=== PATIENT | male | born 1950 | race Caucasian/White ===

== ENCOUNTER 2018-02-03 23:14 | Emergency (ER) | payer BC ==
[2018-02-03] MEDS ORDERED: DILTIAZEM 25 MG/5 ML VIAL IVP ONE (23:45)
[2018-02-03] MEDS ORDERED: NS 1,000 ML IV ONE (23:54)
[2018-02-04] MEDS ORDERED: DILTIAZEM 25 MG/5 ML VIAL IVP ONE (00:16)
--- NOTE | 2018-02-04 00:16 | EDPHY ---
H & P Stated Complaint: ALISSA, flew from [facility], "claustrophobic", diaphoretic Time Seen by Provider: 02/03/18 23:35 HPI/ROS: HPI The patient presents with feeling of anxiety and shortness of breath which began at about 930 while going to bed. The patient is visiting from [place] and flew here on an airplane this morning. He had a mild headache which resolved after drinking water. During the day today he did go on some long walks and believes may have over exerted himself. While lying in bed at 9:30 a.m. He developed diaphoresis, shortness of breath and sensation of anxiety. He did not have any chest pain. He does have a history of atrial fibrillation about 7-8 years ago which improved after hospitalization without any recurrence. He was recently taken off of lisinopril because of a cough. REVIEW OF SYSTEMS 10 systems were reviewed and negative with the exception of the elements mentioned in the history of present illness. PMHx: Hypertension, history of paroxysmal atrial fibrillation Soc Hx: Visiting from [place], here with his PHYSICAL General Appearance: Alert, no distress Eyes: Pupils equal and round no pallor or injection ENT, Mouth: Mucous membranes moist Respiratory: There are no retractions, lungs are clear to auscultation Cardiovascular: Tachycardic rate and with irregularly regular rhythm Gastrointestinal: Abdomen is soft and non-tender, no masses, bowel sounds normal Neurological: A&O, moves all extremities Skin: Warm and dry, no rashes Musculoskeletal: Neck is supple non tender Extremities: symmetrical, full range of motion Psychiatric: Patient is oriented X 3, there is no agitation Source: Patient Exam Limitations: No limitations - Personal History Current Tetanus Diphtheria and Acellular Pertussis (TDAP): No - Medical/Surgical History Hx Asthma: No Hx Chronic Respiratory Disease: No Hx Diabetes: No Hx Cardiac Disease: No Hx Renal Disease: No Hx Cirrhosis: No Hx Alcoholism: No Hx HIV/AIDS: No Hx Splenectomy or Spleen Trauma: No Other PMH: HTn. anxiety - Social History Smoking Status: Never smoked Constitutional: Initial Vital Signs Temperature (C) 36.7 C 02/03/18 23:15 Heart Rate 99 02/03/18 23:15 Respiratory Rate 20 02/03/18 23:15 Blood Pressure 206/111 H 02/03/18 23:15 O2 Sat (%) 91 L 02/03/18 23:15 O2 Delivery Mode Room Air Allergies/Adverse Reactions: menthol Allergy (Verified 02/03/18 23:21) Home Medications: Medication Instructions Recorded Hydrochlorothiazide 02/03/18 Lisinopril 02/03/18 Medical Decision Making - Diagnostics EKG Interpretation: EKG: Complete interpretation has been separately recorded in the [facility] archive. Summary impression: Atrial fibrillation with rapid ventricular response Imaging Results: Imaging Impressions Chest X-Ray 02/04/18 00:00 Impression: Query borderline-cardiac silhouette enlargement. There is no evidence of CHF, or focal infiltrate. Imaging: I viewed and interpreted images myself Procedures: CRITICAL CARE Critical care time spent by me, Dr. Weaver, exclusively with this patient was 20 minutes, exclusive of PA time and exclusive of procedures. The organ system at risk was cardiac and I gave chemical cardioversion with procainamide to prevent worsening of the patients condition. Differential Diagnosis: 67-year-old male with history of hypertension, paroxysmal atrial fibrillation presents with atrial fibrillation with RVR which began at a probably 9:30 p.m. Tonight in association with diaphoresis, shortness of breath, sensation of anxiety. Here, we will administered diltiazem and IV fluids. I will check basic labs to evaluate for pulmonary embolism, ACS. Patient had basic laboratory testing that was unremarkable. He received 2 doses of diltiazem and remained in atrial fibrillation with RVR. Chest x-ray was normal. Given that he is relatively healthy with just hypertension and paroxysmal atrial fibrillation with clear onset of symptoms at 9:30 p.m. Tonight, I feel he is a good candidate for chemical cardioversion. I have given him a dose of procainamide 1 g and this converted him to a normal sinus rhythm with a rate in the 60s. He felt well. I observed him for about 1 hr and he was suitable for discharge after this. I have instructed him to follow up with his account installation specialist when he returns to [place] and return to the emergency department if he is worse in any way. I suspect he went into atrial fibrillation because of his travels today, arriving at altitude, over exerting himself and likely being somewhat dehydrated. - Data Points Laboratory Results: Laboratory Results 02/03/18 23:35 02/03/18 23:35 02/03/18 02/03/18 02/03/18 23:41 23:35 23:35 WBC RBC Hgb Hct MCV MCH MCHC RDW Plt Count MPV Neut % (Auto) Lymph % (Auto) [place] % (Auto) Eos % (Auto) Baso % (Auto) Nucleat RBC Rel Count Absolute Neuts (auto) Absolute Lymphs (auto) Absolute Monos (auto) Absolute Eos (auto) Absolute Basos (auto) Absolute Nucleated RBC Immature Gran % Immature Gran # D-Dimer 0.38 ug/mLFEU ug/mLFEU (0.00-0.50) Sodium 137 mEq/L mEq/L (135-145) Potassium 3.9 mEq/L mEq/L (3.3-5.0) Chloride 101 mEq/L mEq/L (97-110) Carbon Dioxide 25 mEq/l mEq/l (22-31) Anion Gap 11 mEq/L mEq/L (6-14) BUN 16 mg/dL mg/dL (7-23) Creatinine 0.7 mg/dL mg/dL (0.7-1.3) Estimated GFR > 60 Glucose 137 mg/dL H mg/dL (70-100) Calcium 9.9 mg/dL mg/dL (8.5-10.4) Magnesium 1.8 mg/dL mg/dL (1.6-2.3) POC Troponin I 0.01 ng/mL ng/mL (0.00-0.08) 02/03/18 23:35 WBC 11.25 10^3/uL H 10^3/uL (3.80-9.50) RBC 5.70 10^6/uL 10^6/uL (4.40-6.38) Hgb 15.2 g/dL g/dL (13.7-17.5) Hct 45.4 % % (40.0-51.0) MCV 79.6 fL L fL (81.5-99.8) MCH 26.7 pg L pg (27.9-34.1) MCHC 33.5 g/dL g/dL (32.4-36.7) RDW 15.8 % H % (11.5-15.2) Plt Count 312 10^3/uL 10^3/uL (150-400) MPV 11.4 fL fL (8.7-11.7) Neut % (Auto) 60.1 % % (39.3-74.2) Lymph % (Auto) 24.5 % % (15.0-45.0) [place] % (Auto) 7.9 % % (4.5-13.0) Eos % (Auto) 6.8 % % (0.6-7.6) Baso % (Auto) 0.4 % % (0.3-1.7) Nucleat RBC Rel Count 0.0 % % (0.0-0.2) Absolute Neuts (auto) 6.75 10^3/uL H 10^3/uL (1.70-6.50) Absolute Lymphs (auto) 2.76 10^3/uL 10^3/uL (1.00-3.00) Absolute Monos (auto) 0.89 10^3/uL H 10^3/uL (0.30-0.80) Absolute Eos (auto) 0.77 10^3/uL H 10^3/uL (0.03-0.40) Absolute Basos (auto) 0.05 10^3/uL 10^3/uL (0.02-0.10) Absolute Nucleated RBC 0.00 10^3/uL 10^3/uL (0-0.01) Immature Gran % 0.3 % % (0.0-1.1) Immature Gran # 0.03 10^3/uL 10^3/uL (0.00-0.10) D-Dimer Sodium Potassium Chloride Carbon Dioxide Anion Gap BUN Creatinine Estimated GFR Glucose Calcium Magnesium POC Troponin I Medications Given: Discontinued Medications Diltiazem HCl (Cardizem 25 Mg/5 Ml Vial) 25 mg IVP EDNOW ONE Stop: 02/03/18 23:46 Last Admin: 02/03/18 23:50 Dose: 25 mg Diltiazem HCl (Cardizem 25 Mg/5 Ml Vial) 35 mg IVP EDNOW ONE Stop: 02/04/18 00:17 Last Admin: 02/04/18 00:26 Dose: 35 mg Sodium Chloride (Ns) 1,000 mls @ 0 mls/hr IV ONCE ONE; Wide Open PRN Reason: Protocol Stop: 02/03/18 23:55 Last Admin: 02/03/18 23:54 Dose: 1,000 mls Procainamide HCl 1,000 mg/ (Sodium Chloride) 60 mls @ 120 mls/hr IV ONCE ONE Stop: 02/04/18 01:38 Last Admin: 02/04/18 01:25 Dose: 60 mls Metoprolol Tartrate (Lopressor Injection) 5 mg IVP Q5M BJ Stop: 02/04/18 01:26 Last Admin: 02/04/18 01:49 Dose: Not Given Point of Care Test Results: Chemistry 02/03/18 23:41 POC Troponin I 0.01 ng/mL ng/mL (0.00-0.08) Departure - Departure Disposition: Home, Routine, Self-Care Clinical Impression: Atrial fibrillation with RVR Condition: Good Instructions: A-fib (Atrial Fibrillation) (ED) Additional Instructions: Please take your medications as prescribed and make sure to drink plenty of fluids. You should follow up with your account installation specialist when you return home. Return to the emergency department if your worse in any way. Referrals: [facility] [Other] - As per Instructions
[2018-02-04 00:21] LABS: PLATELET COUNT 312 10^3/uL (150-400)
[2018-02-04] MEDS ORDERED: NS IV ONE (01:09)
[2018-02-04] MEDS ORDERED: PROCAINAMIDE HCL IV ONE (01:09)
[2018-02-04] MEDS: METOPROLOL TARTRATE 5 MG/5 ML INJ IVP SCH (01:49)
[2018-02-04 02:20] VITALS: BP 137/68
--- NOTE | 2018-02-04 04:10 | CPEKG ---
Test Reason : OPEN Blood Pressure : / mmHG Vent. Rate : 142 BPM Atrial Rate : 140 BPM P-R Int : 077 ms QRS Dur : 089 ms QT Int : 313 ms P-R-T Axes : 059 -24 031 degrees QTc Int : 481 ms Atrial fibrillation Inferior infarct, old Confirmed by Tracey Weaver ([id number]) on 02/04/2018 4:10:01 AM Referred By: Confirmed By:Tracey Weaver
== END 2018-02-04 02:19 | disposition home or self-care (01) ==
DX: I48.91 Unspecified atrial fibrillation (principal); E86.9 Volume depletion, unspecified; F41.9 Anxiety disorder, unspecified; I10 Essential (primary) hypertension
CPT/HCPCS: 84484-PO; 96374; J2690